=== PATIENT | male | born 1930 | race Caucasian/White ===

== ENCOUNTER 2016-10-13 15:09 | Outpatient (CLI) | payer MEDICARE, OTHER | END 2016-10-13 15:10 | disposition home or self-care (01) | DX: G47.33 Obstructive sleep apnea (adult) (pediatric) (principal) | CPT/HCPCS: 99214; G0463 ==

== ENCOUNTER 2017-07-28 07:49 | Day surgery (SDC) | payer MEDICARE, OTHER ==
[~2017-07-28 07:49] MED LIST: BRIMONIDINE 0.2% OPHTH DROPS 5 ML ONE; TIMOLOL 0.5% OPHTH DROPS ONE
[2017-07-28] MEDS: LACTATED RINGERS 500 ML IV ONE (07:57)
[2017-07-28] MEDS: CYCLOPENTOLATE 1% OPHTH DROPS 2 ML ONE (08:38)
[2017-07-28] MEDS: PHENYLEPHRINE 2.5% OPHTH 2 ML DROPS ONE (08:39)
[2017-07-28] MEDS: PROPARACAINE 0.5% OPHTH DROPS 15 ML ONE (08:39)
[2017-07-28] MEDS: KETOROLAC 0.45% OPHTH DROPS ONE (08:39)
[2017-07-28] MEDS: BRIMONIDINE 0.2% OPHTH DROPS 5 ML OPTH ONE (09:03)
[2017-07-28] MEDS: TIMOLOL 0.5% OPHTH DROPS OPTH ONE (09:03)
[2017-07-28] MEDS: EPINEPHrine 1 MG/ML AMP IVP ONE (09:03)
[2017-07-28] MEDS: CHONDR SULF/HYALURONATE SYRINGE IO ONE (09:03)
[2017-07-28] MEDS: TRIAMCIN/MOXIFLOX/VANCO 1 ML VIAL IO ONE ×2 (09:04)
[2017-07-28] MEDS: BSS/LIDOCAINE/EPINEPHRINE 1 ML SYRINGE IO ONE ×2 (09:04)
[2017-07-28] MEDS: PROPARACAINE 0.5% OPHTH DROPS 15 ML RIGHTEYE ONE (09:04)
[2017-07-28] MEDS ORDERED: MIDAZOLAM 2 MG/2 ML VIAL IVP ONE (09:05)
[2017-07-28 09:39] VITALS: BP 157/79
--- NOTE | 2017-07-28 10:37 | OPERATIVE REPORT ---
DATE OF SURGERY: 07/28/2017 00:00:00 PREOPERATIVE DIAGNOSIS: Visually significant cataract, right eye. Cataract surgery was performed on t he left eye on 08/05/2016. POSTOPERATIVE DIAGNOSIS: Visually significant cataract, right eye. Cataract surgery was performed on the left eye on 08/05/2016. NAME OF PROCEDURE: Phacoemulsification with posterior chamber intraocular lens implant, right eye. SURGEON: Jose Lee MD ANESTHESIA: Monitored anesthesia care. COMPLICATIONS: None. 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 Best corrected visual acuity was 20/30 with glare to 20/70 in the ri ght eye. Indications for surgery were difficulty seeing words on the computer screen, difficulty read ing, difficulty seeing words closed caption screen scores on TV. He was consented at length concernin g the risks and benefits of cataract surgery after which he expressed a desire to proceed with surger y. OPERATIVE PROCEDURE: The patient was taken into OR #3 and placed under monitored anesthesia care. A s urgical time-out was conducted confirming correct patient, correct procedure and correct surgical sit e. He was given topical anesthesia and then prepped and draped in the usual sterile fashion. The eye was entered at the 12 and 9 o'clock positions. Intracameral Shugarcaine was injected into the anterio r chamber followed by Viscoat, and continuous tear curvilinear capsulorrhexis was performed. The nucl eus was hydrodissected and phacoemulsified. The cortex was evacuated using automated infusion and asp iration. Provisc was injected into the capsular bag and a 23.0 diopter intraocular lens was inserted in the bag. Approximately 0.7 mL of a mixture of triamcinolone, moxifloxacin, and vancomycin was inje cted subconjunctivally in superior quadrant for infection and inflammation prophylaxis. I/A was used to evacuate the viscoelastic materials. The eye was inflated to physiologic pressure using balanced s alt solution and found to be watertight. The patient was taken from the operating room in good condit ion and given postoperative instructions. JOB #: [id number] EXT JOB #:[id number]
== END 2017-07-28 07:50 | disposition home or self-care (01) ==
LOC: SDS 07:49
PROVIDERS: ATTEND Ophthalmology
PROC: 08RJ3JZ Replacement of Right Lens with Synthetic Substitute, Percutaneous Approach (ICD-10-PCS; principal; 2017-07-28 09:00)
DX: H25.11 Age-related nuclear cataract, right eye (principal); I10 Essential (primary) hypertension; I25.10 Atherosclerotic heart disease of native coronary artery without angina pectoris; Z87.891 Personal history of nicotine dependence; I48.91 Unspecified atrial fibrillation; J44.9 Chronic obstructive pulmonary disease, unspecified; E11.9 Type 2 diabetes mellitus without complications; Z95.810 Presence of automatic (implantable) cardiac defibrillator; E78.5 Hyperlipidemia, unspecified; N40.0 Benign prostatic hyperplasia without lower urinary tract symptoms
CPT/HCPCS: 66984; A9270; J3490; V2632

== ENCOUNTER 2017-10-31 14:28 | Outpatient (CLI) | payer MEDICARE, OTHER | END 2017-10-31 14:29 | disposition home or self-care (01) | LOC: SC 14:28 | PROVIDERS: ATTEND Nurse Practitioner Family | DX: G47.33 Obstructive sleep apnea (adult) (pediatric) (principal) | CPT/HCPCS: 99214; G0463; 99212 ==

== ENCOUNTER 2019-02-26 10:41 | Outpatient (CLI) | payer MEDICARE, OTHER | END 2019-02-26 10:42 | disposition home or self-care (01) | LOC: SC 10:41 | PROVIDERS: ATTEND Nurse Practitioner Family | DX: G47.33 Obstructive sleep apnea (adult) (pediatric) (principal) | CPT/HCPCS: 99214; G0463; 99212 ==

== ENCOUNTER 2021-08-14 13:02 | Outpatient (CLI) | payer MEDICARE, OTHER ==
--- NOTE | 2021-08-14 13:58 | SLEEP CARE CONSULTATION ---
Information from patient questionnaire entered by Amaya Ray MA. I have reviewed and concur with the information entered by Amaya Ray MA. This document represents the service I personally performed and the decisions made by , Thu Jack ARNP. History of Present Illness Service Date and Time: 08/14/2021 1302 Previous diagnosis: Moderate, Obstructive Sleep Apnea-Hypopnea Syndrome AHI: 29.7 Reason for follow up: annual (last seen 02/2019) Equipment type: CPAP Equipment obtained from: [employer] (getting supplies) Mask style: Full face Backup mask available: Yes (old mask) Last cushion change: 1-2 weeks ago HPI additional information: JESSICA GRIFFITHS was diagnosed to have moderate, AHI 29.7, obstructive sleep apnea-hypopnea syndrome and returned today with son for CPAP therapy annual follow-up. CPAP Compliance Data - Data Reviewed with Patient Average duration of nightly device use: 7 HOURS 11 MINUTES Compliance rate %: 98.3 Current pressure setting (cmH2O): 13-18 Humidity setting: OFF Heated hose settin Average residual AHI: 10.8 Average large leak: 3 MINUTES 44 SECONDS Subjective Patient concerns: reports: mask leak noise, dry mouth, nose, throat (humidifier stopped working on machine). denies: aerophagia, mask discomfort, air blowing in eyes, condensation in mask/hose, nasal congestion, epistaxis, other Observed to snore while using device: No Current pressure setting perceived as: comfortable On therapy, patient: reports: sleeping better, awakening more refreshed, being more awake and alert during the day, more rested overall. denies: drowsiness while driving Initial [place] Sleepiness Scale score: 7 (2014) Current [place] Sleepiness Scale score: 10 (2020) Allergies and Home Medications Known drug allergies: No Home medication list reviewed: Yes (Changed Vicodin dose, uses prn) Allergy and home medication list: Allopurinol Amiodarone Ascorbic acid Aspirin Atorvastatin Basaglar insulin Cardura Vitamin D3 Furosemide Gabapentin Glipizide Hydralazine [place] Isosorbide mononitrate Levothyroxine Metolazone Multivitamins Warfarin Review of Systems Review of systems same as previous: Yes (no changes) Physical Exam Vital signs obtained and entered by: Jignesh RAY CMA AAYOUNG Blood Pressure: 120/60 (RIGHT) Cuff size: wrist Heart Rate: 61 O2 Saturation: 91 (MASK) Height: 5 ft 10 in Weight: 202 lb (INFO FROM PT) Body Mass Index: 29.0 BMI Classification: Overweight Impression and Plan 1. Obstructive Sleep Apnea-Hypopnea Syndrome, moderate, with good treatment compliance and fair apnea control with elevated residual AHI. The patients pressure will be changed to autoCPAP 15-20 cmH20 for elevation of residual AHI. Patient advised to contact me if pressure change is uncomfortable so that it can be adjusted. Goals for apnea control discussed.On CPAP therapy, the patient has better sleep quality and is more rested overall. Patient states his CPAP is broken. The humidifier chamber is not working and neither is the heated hose. He does have a machine that was updated in 2015. The patients CPAP is over 5 years old and of reasonable use. Thus, the CPAP will be updated. The new CPAPs also have a better humidity system which could assist control of patients dryness symptoms. A DWO prescription will be made. Compliance guidelines for new device and follow up discussed. Patient's apnea severity and rationale for treatment to reduce apnea, improve sleep quality and reduce cardiovascular and cerebrovascular events was reviewed. I also reviewed the benefit of consistent device use of CPAP for cardiac disease. Patient was encouraged to lose weight for their overall health and to reduce apneas. * Change auto CPAP pressure to 15-20 cmH2O * Update CPAP * Update supplies as needed * Notify me if snoring with mask or feeling that the pressure is too much or too little * Attempt to lose weight * Call this office if any problems using CPAP * Return for follow up one month after obtaining new device, or sooner if concerns arise Counseling Topics: Spare mask, Weight loss health impact Visit Type: In Office Time Spent with Patient (minutes): 21 Provider Statement: I spent 100% of the Face to Face Visit with the patient with greater than 50% spent counseling the patient and coordination of care.
[2021-08-14 13:59] VITALS: BP 120/60
== END 2021-08-14 13:03 | disposition home or self-care (01) ==
LOC: SC 13:02
PROVIDERS: ATTEND Nurse Practitioner Family
DX: G47.33 Obstructive sleep apnea (adult) (pediatric) (principal)
CPT/HCPCS: 99213; G0463; 99212

== ENCOUNTER 2022-03-25 12:49 | Outpatient (CLI) | payer MEDICARE, OTHER ==
[2022-03-25 13:35] VITALS: BP 121/60
--- NOTE | 2022-03-25 13:35 | SLEEP CARE CONSULTATION ---
Information from patient questionnaire entered by Amaya Ray MA. I have reviewed and concur with the information entered by Amaya Ray MA. This document represents the service I personally performed and the decisions made by , Thu Jack ARNP. History of Present Illness Service Date and Time: 03/25/2022 1249 Previous diagnosis: Moderate, Obstructive Sleep Apnea-Hypopnea Syndrome AHI: 29.7 Reason for follow up: annual ( 02/04/2022) Accompanied by: Son Equipment type: CPAP Equipment obtained from: [employer] (getting supplies) Mask style: Full face Backup mask available: Yes (old mask) Last cushion change: 1 month HPI additional information: JESSICA GRIFFITHS was diagnosed to have moderate, AHI 29.7, obstructive sleep apnea-hypopnea syndrome and returned today with son for CPAP therapy first compliance after updating device follow-up. CPAP Compliance Data - Data Reviewed with Patient Average duration of nightly device use: 6 HOURS 34 MINUTES Compliance rate %: 92.2 (12/24/21-03/23/22; 88/90 days used) Current pressure setting (cmH2O): 13-18 Heated hose settin Average residual AHI: 7.4 Central apnea: 0.9 Obstructive apnea: 3.4 Hypopnea: 3.1 Average large leak: 1 HOUR 8 MINUTES 57 SECONDS Subjective Patient concerns: reports: air blowing in eyes, mask leak noise, dry mouth, nose, throat, other (humidifier not working well). denies: aerophagia, mask discomfort, condensation in mask/hose, nasal congestion, epistaxis Observed to snore while using device: No Current pressure setting perceived as: comfortable On therapy, patient: reports: sleeping better, awakening more refreshed, being more awake and alert during the day, more rested overall. denies: drowsiness while driving (does not drive) Initial [place] Sleepiness Scale score: 7 (2014) Current [place] Sleepiness Scale score: 7 (03/25/2022) Allergies and Home Medications Known drug allergies: No (NKA) Home medication list reviewed: Yes (no changes) Allergy and home medication list: Allergies No Known Drug Allergies Allergy (Verified 01/02/15 08:44) Review of Systems Review of systems same as previous: No ([employer], AND IN HOSPICE. ) Physical Exam Vital signs obtained and entered by: APRIL LAGUNA Blood Pressure: 121/60 (RESP 20, PULSE 65, RIGHT) Heart Rate: 60 O2 Saturation: 96 Height: 5 ft 10 in Weight: 185 lb (CLOTHES) Body Mass Index: 26.5 BMI Classification: Overweight Impression and Plan 1. Obstructive Sleep Apnea-Hypopnea Syndrome, moderate, with good treatment compliance and fair apnea control with mild elevation of residual AHI. He was accompanied by his son today who is helping him understand what is needed. On CPAP therapy, the patient has better sleep quality and is more rested overall. Patient did receive a new ResMed but has not yet taken out of box and started using it. His has been in hospital, to rehab and is now on Hospice care. He is very concerned/worried about the situation and has not taken time to put together and to start using. He still gets some dry mouth and feels the humi difier is not working. I encouraged him to start using the new device. We need to have a compliance visit scheduled to check compliance with new CPAP. He will make an appointment for this before leaving today. Patient's apnea severity and rationale for treatment to reduce apnea, improve sleep quality and reduce cardiovascular and cerebrovascular events was reviewed. I also reviewed the benefit of consistent device use of CPAP for cardiac disease. * Continue auto CPAP pressure at 13-18 cmH2O * Notify me if snoring with mask or feeling that the pressure is too much or too little * Call this office if any problems using CPAP * Return for follow up in 1-2 months, or sooner if concerns arise Counseling Topics: Spare mask Visit Type: In Office Patient Location: Son Time Spent with Patient (minutes): 20 Provider Statement: I spent 100% of the Face to Face Visit with the patient with greater than 50% spent counseling the patient and coordination of care.
== END 2022-03-25 12:50 | disposition home or self-care (01) ==
LOC: SC 12:49
PROVIDERS: ATTEND Nurse Practitioner Family
DX: G47.33 Obstructive sleep apnea (adult) (pediatric) (principal); E66.3 Overweight; Z68.26 Body mass index [BMI] 26.0-26.9, adult
CPT/HCPCS: 99213; G0463; 99212

== ENCOUNTER 2022-04-29 12:47 | Outpatient (CLI) | payer MEDICARE, OTHER ==
[2022-04-29 13:29] VITALS: BP 130/51
--- NOTE | 2022-04-29 13:29 | SLEEP CARE CONSULTATION ---
Information from patient questionnaire entered by Amaya Ray MA. I have reviewed and concur with the information entered by Amaya Ray MA. This document represents the service I personally performed and the decisions made by , Thu Jack ARNP. History of Present Illness Service Date and Time: 04/29/2022 1247 Previous diagnosis: Moderate, Obstructive Sleep Apnea-Hypopnea Syndrome AHI: 29.7 Reason for follow up: one month (LAST SEEN 02/2022, LOBTIO, MARQUEZ 06/16/2015, NEW Rx? ) Accompanied by: Son Equipment type: CPAP Equipment obtained from: [employer] (getting supplies) Mask style: Full face Backup mask available: Yes (old mask) Last cushion change: last night Prior sleep studies: Yes HPI additional information: JESSICA GRIFFITHS was diagnosed to have moderate, AHI 29.7, obstructive sleep apnea-hypopnea syndrome and returned today for CPAP therapy first compliance after updating device follow-up. Subjective Patient concerns: reports: air blowing in eyes (improved with change to to new cushion), dry mouth, nose, throat. denies: aerophagia, mask discomfort, mask leak noise, condensation in mask/hose, nasal congestion, epistaxis, other Observed to snore while using device: No Current pressure setting perceived as: too high On therapy, patient: reports: sleeping better, awakening more refreshed, being more awake and alert during the day, more rested overall. denies: drowsiness while driving (not driving) Initial [place] Sleepiness Scale score: 7 (2014) Current [place] Sleepiness Scale score: 7 Allergies and Home Medications Known drug allergies: No (NKA) Drug allergies reviewed: Yes Home medication list reviewed: Yes Allergy and home medication list: Allergies No Known Drug Allergies Allergy (Verified 01/02/15 08:44) new medications: LORAZAPAM 0.5MG PRN ( OR SPOUSE) VERIFIED BY APRIL LAGUNA 04/29/2022 1300 Review of Systems Review of systems same as previous: Yes ( of spouse 2 weeks ago and unable to sleep) Physical Exam Vital signs obtained and entered by: APRIL LAGUNA Blood Pressure: 130/51 (R20 P60 LEFT) Cuff size: wrist Heart Rate: 60 O2 Saturation: 97 Height: 5 ft 10 in Weight: 187 lb (CLOTHES) Body Mass Index: 26.8 BMI Classification: Overweight Impression and Plan 1. Obstructive Sleep Apnea-Hypopnea Syndrome, moderate, with unknown treatment compliance and unknown apnea control. On CPAP therapy, the patient has better sleep quality and is more rested overall. Patient lost his 2 weeks ago when she . He is not sleeping well and his PCP precribed him some lorazepam to help him to sleep. He states he has been using his new CPAP since we saw him 4 weeks ago. We do not have access to his compliance information. We will try to obtain this and call patient if there needs to be any changes of his pressure. He feels the pressure is too high on his new machine. I will make adjustments as needed. Patient's apnea severity and rationale for treatment to reduce apnea, improve sleep quality and reduce cardiovascular and cerebrovascular events was reviewed. I also reviewed the benefit of consistent device use of CPAP for cardiac disease. * Continue auto CPAP pressure at 13-18 cmH2O * Notify me if snoring with mask or feeling that the pressure is too much or too little * Call this office if any problems using CPAP * Return for follow up in 1 year, or sooner if concerns arise Counseling Topics: Spare mask Visit Type: In Office Other Participants: Other (Son) Time Spent with Patient (minutes): 22 Provider Statement: I spent 100% of the Face to Face Visit with the patient with greater than 50% spent counseling the patient and coordination of care.
== END 2022-04-29 12:48 | disposition home or self-care (01) ==
LOC: SC 12:47
PROVIDERS: ATTEND Nurse Practitioner Family
DX: G47.33 Obstructive sleep apnea (adult) (pediatric) (principal); E66.3 Overweight; Z68.26 Body mass index [BMI] 26.0-26.9, adult; Z63.4 Disappearance and death of family member
CPT/HCPCS: 99213; G0463; 99212